=== PATIENT | female | born 1980 | race Caucasian/White ===

== ENCOUNTER 2018-09-06 18:54 | Emergency (ER) | payer MEDICAID ==
[~2018-09-06] VITALS: Ht 165.1 cm; Wt 65.9 kg
[~2018-09-06 18:54] MED LIST: ASPI-128; KEN0.1O TP; PNV1CAPS PO
[2018-09-06 19:30] VITALS: BP 156/112
[2018-09-06] MEDS ORDERED: ketorolac tromethamine 15mg/ml inj. IM ONE (20:30)
== END 2018-09-06 21:54 | disposition home or self-care (01) ==
LOC: MERGE 18:56 → ER 18:56
DX: G58.8 Other specified mononeuropathies (principal); M54.6 Pain in thoracic spine; M25.511 Pain in right shoulder; Z88.0 Allergy status to penicillin; Z88.2 Allergy status to sulfonamides; Z88.1 Allergy status to other antibiotic agents
CPT/HCPCS: 71045; 96372; 99283; J1885